=== PATIENT | male | born 1960 | race African-American/Black ===

== ENCOUNTER 2021-02-20 14:55 | Emergency (ER) | payer OTHER ==
[~2021-02-20] VITALS: Ht 182.9 cm; Wt 99.8 kg
[2021-02-20] MEDS ORDERED: HYDROCODON-ACE1 EAC7 PO (17:32)
[2021-02-20] MEDS ORDERED: FLEXERIL PO (17:36)
[2021-02-20 17:49] VITALS: BP 132/80
== END 2021-02-20 17:50 | disposition home or self-care (01) ==
LOC: M.ERS 14:55
DX: S39.012A Strain of muscle, fascia and tendon of lower back, initial encounter (principal); V33.5XXA Driver of three-wheeled motor vehicle injured in collision with car, pick-up truck or van in traffic accident, initial encounter; Y93.I9 Activity, other involving external motion; Y92.488 Other paved roadways as the place of occurrence of the external cause; Y99.8 Other external cause status